=== PATIENT | male | born 1935 | race Caucasian/White ===

== ENCOUNTER → 2017-11-27 07:38 | Outpatient (CLI) | payer MEDICARE, OTHER, SELFPAY ==
[2017-11-27 09:03] LABS: Alanine Aminotransferase 25 IU/L (21-72); Albumin 3.7 g/dL (3.5-5.0); Albumin Globulin Ratio 1.1 (1.0-2.8); Alkaline Phosphatase 47 U/L (38-126); Aspartate Aminotransferase 26 IU/L (17-59); BUN Creatinine Ratio 17.3 (6-22); Bilirubin Total 0.7 mg/dL (0.2-1.3); Blood Urea Nitrogen 19 mg/dL (9-20); Calcium 8.7 mg/dL (8.4-10.2); Carbon Dioxide 36 mmol/L (22-32); Chloride 100 mmol/L (98-107); Estimated Glomerular Filt Rate > 60.0 mL/min (>60); Globulin 3.3 g/dL (1.7-4.1); Glucose 98 mg/dL (80-110); HEMOLYSIS < 15 (0-50); Potassium 4.2 mmol/L (3.4-5.1); Sodium 142 mmol/L (137-145)
== END ==
PROVIDERS: PCP Internal Medicine; Visit Provider Internal Medicine
DX: J84.9 Interstitial pulmonary disease, unspecified (principal)
CPT/HCPCS: 36415; 80053

== ENCOUNTER → 2017-12-24 13:09 | Outpatient (CLI) | payer MEDICARE, OTHER, SELFPAY | PROVIDERS: Family Provider Internal Medicine; PCP Internal Medicine; Visit Provider Internal Medicine | DX: J84.112 Idiopathic pulmonary fibrosis (principal) | CPT/HCPCS: 94618 ==

== ENCOUNTER 2018-01-03 15:20 | Emergency (ER) | payer MEDICARE, OTHER, SELFPAY ==
[2018-01-03 15:30] VITALS: BP 148/85; PULSE 98; RESP 32; O2SAT 92
[2018-01-03 15:34] VITALS: BP 148/85; PULSE 97; RESP 40; TEMP 37; O2SAT 93
--- NOTE | 2018-01-03 15:38 | DI.RAD.S_ITS ---
PROCEDURE: XR CHEST 1V INDICATIONS: sob TECHNIQUE: One view of the chest was acquired. COMPARISON: [facility], CT, THORAX WITHOUT CONTRAST, 11/17/2014, 8:54. [facility], CR, CHEST 2 VIEW, 11/01/2014, 7:42. FINDINGS: Surgical changes and devices: None. Lungs and pleura: No pleural effusions or pneumothorax. There are bilateral confluent airspace opacities with a basilar predominance. There are also diffuse bilateral reticular septal thickening and underlying interstitial lung disease. A few discrete nodular opacities are noted laterally. Mediastinum: Mediastinal contours appear unchanged. Heart size is normal. Bones and chest wall: No suspicious bony lesions. Overlying soft tissues appear unremarkable. IMPRESSION: 1. Diffuse confluent bilateral airspace opacities are nonspecific and may represent pneumonia, pulmonary edema/ARDS, hemorrhage, or other infectious/inflammatory etiologies. 2. Reticular components demonstrated bilaterally suggestive of underlying chronic interstitial lung disease. 3. Suggestion of more discrete nodular opacities bilaterally. Further evaluation may be obtained CT. Dictated by: Benedicto Flowers M.D. on 01/03/2018 at 16:03 Approved by: Benedicto Flowers M.D. on 01/03/2018 at 16:06
[2018-01-03 16:04] LABS: Blood Urea Nitrogen 19 mg/dL (9-20); Calcium 8.7 mg/dL (8.4-10.2); Carbon Dioxide 35 mmol/L (22-32); Chloride 99 mmol/L (98-107); Estimated Glomerular Filt Rate > 60.0 mL/min (>60); Glucose 96 mg/dL (80-110); HEMOLYSIS 28 (0-50); Potassium 4.5 mmol/L (3.4-5.1); Sodium 138 mmol/L (137-145)
[2018-01-03 16:08] LABS: Basophils Percent Auto 0.9 % (0-2); Eosinophils Percent Auto 2.7 % (2-4); Hematocrit 40.4 % (41-53); Hemoglobin 13.9 g/dL (13.5-17.5); Mean Corpuscular HGB Conc 34.4 % (30-36); Mean Corpuscular Volume 87.1 fL (80-100); Monocytes Percent Auto 5.7 % (3-14); Neutrophils Absolute Auto 7800 /uL (3000-5900); Neutrophils Percent Auto 79.7 % (50-75); Platelet Count 236 X10^3/uL (150-400); Red Blood Cell Count 4.64 X10^6/uL (4.5-5.9); Red Cell Distribution Width 13.4 % (11.6-14.8); White Blood Cell Count 9.8 X10^3/uL (4.5-11.0)
[2018-01-03 16:14] LABS: PCO2 VBG 49.7 mmHg (45-50)
[2018-01-03] MEDS: methylPREDNISolone 125 MG/2 ML VIAL IV (16:14)
[2018-01-03] MEDS: MAGNESIUM SULFATE 2 GM/50 ML PIGGYBACK IV (16:14)
[2018-01-03 16:15] LABS: HCO3 VBG 31 mmol/L (24-28); Oxygen Saturation VBG 60 % (70-75); PO2 VBG 31 mmHg (35-45); Total CO2 VBG 33 mmol/L (24-29)
[2018-01-03] MEDS: levoFLOXacin 750 MG/150 ML PIGGYBACK 100 MG IV (16:15)
[2018-01-03 16:19] LABS: Troponin I < 0.012 ng/mL (0.01-0.034)
[2018-01-03] MEDS: ALBUTEROL/IPRATROPIUM 3 ML AMPUL 6 ML INH (16:19)
[2018-01-03] MEDS: ALBUTEROL 2.5 MG/3 ML NEB (ADULT) 15 MG INH (16:20)
[2018-01-03 16:26] LABS: Add Manual Diff / Slide Review SLIDE REVIEW
[2018-01-03 16:29] LABS: RBC Morphology Normal Morphology
[2018-01-03 16:30] VITALS: BP 126/75; PULSE 66; RESP 34; O2SAT 100
[2018-01-03 16:31] LABS: Procalcitonin < 0.05 ng/mL (<0.5)
[2018-01-03 16:40] VITALS: PULSE 101; RESP 18; RESP 40; O2SAT 100
--- NOTE | 2018-01-03 17:01 | PC.NURSE ---
PT FAMILY CONCERNED AND REQUESTING CHEST CT DUE TO PT NOT BEING ANTI-COAGULATED WITH HX A-FIB. PROVIDER AWARE. NO NEW ORDERS AT THIS TIME, PRIOR TO AIRLIFT ARRIVAL.
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
[2018-01-03 17:12] LABS: D Dimer 858 ng/mL (<230)
[2018-01-03 17:14] VITALS: BP 134/84; PULSE 92; RESP 46; O2SAT 100
[2018-01-03 17:18] VITALS: BP 150/78; PULSE 102; RESP 32; O2SAT 100
== END 2018-01-03 17:25 | disposition short-term general hospital (02) ==
PROVIDERS: Emergency Provider Emergency Medicine; Family Provider Internal Medicine; PCP Internal Medicine
DX: J84.10 Pulmonary fibrosis, unspecified (principal); R06.03 Acute respiratory distress
CPT/HCPCS: 71045; 80048; 82805; 83735; 84145; 84484; 85025; 85379; 93005; 93010; 94640; 94660; 96365; 96368; 96375; 99284; 99285; J1956; J2930; J7613